=== PATIENT | female | born 1980 | race Caucasian/White ===

== ENCOUNTER 2017-06-03 08:58 | Emergency (ER) | payer MEDICAID ==
[2017-06-03 09:50] VITALS: BP 121/77
== END 2017-06-03 10:11 | disposition home or self-care (01) ==
LOC: ED 08:58
DX: Z76.0 Encounter for issue of repeat prescription (principal); E07.9 Disorder of thyroid, unspecified

== ENCOUNTER 2017-06-12 17:24 | Emergency (ER) | payer MEDICAID ==
[2017-06-12 18:20] VITALS: BP 110/69
== END 2017-06-12 18:20 | disposition home or self-care (01) ==
LOC: ED 17:24
DX: G44.209 Tension-type headache, unspecified, not intractable (principal); M54.2 Cervicalgia; E07.9 Disorder of thyroid, unspecified

== ENCOUNTER 2018-07-17 08:27 | Emergency (ER) | payer MEDICAID ==
[~2018-07-17] VITALS: Ht 157.5 cm; Wt 75.9 kg
[2018-07-17 08:37] VITALS: Ht 157.5 cm; Wt 75.9 kg
[2018-07-17 09:12] LABS: BASOPHIL % 0.6 % (0-2); PLATELET COUNT 362 x10^3mcL (130-400)
[2018-07-17 09:13] LABS: CALCIUM 9.1 mg/dL (8.5-10.1); CARBON DIOXIDE 27.6 mmol/L (21-32); CHLORIDE SERUM 103 mmol/L (98-107); CREATININE SERUM 0.5 mg/dL (0.6-1.0); GFR1 > 60 mL/min; GLUCOSE SERUM 104 mg/dL (74-106); POTASSIUM SERUM 3.7 mmol/L (3.5-5.1); SODIUM SERUM 135 mmol/L (136-145)
[2018-07-17 09:15] LABS: RED CELL DISTRIBUTION WIDTH 17.2 % (11.5-14.5)
[2018-07-17 09:38] LABS: T3 TOTAL 1.11 ng/mL
[2018-07-17 09:57] LABS: FREE T4 1.23 ng/dL (0.76-1.46); FREE THYROXINE INDEX 2.7 ug/dL (1.4-4.5); T4(THYROXINE) 8.7 ug/dL (4.7-13.3)
[2018-07-17 11:20] VITALS: BP 122/88
== END 2018-07-17 11:20 | disposition home or self-care (01) ==
LOC: ED 08:27
PROVIDERS: Emergency Medicine
DX: R42 Dizziness and giddiness (principal); E03.9 Hypothyroidism, unspecified
CPT/HCPCS: 84439; J2405; J8597; Q0092

== ENCOUNTER 2018-08-31 15:17 | Emergency (ER) | payer MEDICAID ==
[~2018-08-31] VITALS: Ht 160 cm; Wt 77.1 kg
[2018-08-31 15:35] VITALS: Ht 160 cm; Wt 77.1 kg
[2018-08-31 18:20] VITALS: BP 130/82
== END 2018-08-31 18:20 | disposition home or self-care (01) ==
LOC: ED 15:17
DX: J06.9 Acute upper respiratory infection, unspecified (principal); E03.9 Hypothyroidism, unspecified